=== PATIENT | male | born 1985 | race Caucasian/White ===

== ENCOUNTER 2018-04-05 08:21 | Outpatient (RCR) | payer OTHER, MEDICAID ==
[2018-02-22 08:32] LABS: BASOPHILS # (AUTO) 0.1 10^3/uL (0.0-0.1); BASOPHILS % (AUTO) 1 % (0-10); EOSINOPHILS # (AUTO) 0.1 10^3/uL (0.0-0.3); EOSINOPHILS % (AUTO) 1 % (0-10); HEMATOCRIT 44 % (40-54); HEMOGLOBIN 15.2 G/DL (13.3-17.7); LYMPHOCYTES # (AUTO) 4.4 X 10^3 (1.0-4.0); LYMPHOCYTES % (AUTO) 41 % (12-44); MEAN CORPUSCULAR HEMOGLOBIN 29 PG (25-34); MEAN CORPUSCULAR HGB CONC 35 G/DL (32-36); MEAN CORPUSCULAR VOLUME 82 FL (80-99); MEAN PLATELET VOLUME 10.3 FL (7.4-10.4); MONOCYTES # (AUTO) 0.7 X 10^3 (0.0-1.0); MONOCYTES % (AUTO) 7 % (0-12); NEUTROPHILS # (AUTO) 5.2 X 10^3 (1.8-7.8); NEUTROPHILS % (AUTO) 50 % (42-75); PLATELET COUNT 224 10^3/uL (130-400); RED BLOOD COUNT 5.31 10^6/uL (4.35-5.85); RED CELL DISTRIBUTION WIDTH 15.8 % (10.0-14.5); WHITE BLOOD COUNT 10.5 10^3/uL (4.3-11.0)
[2018-02-22 08:50] LABS: ALANINE AMINOTRANSFERASE 29 U/L (0-55); ALKALINE PHOSPHATASE 118 U/L (40-136); BILIRUBIN,TOTAL 0.6 MG/DL (0.1-1.0); BUN/CREATININE RATIO 13; CALCIUM 9.3 MG/DL (8.5-10.1); CARBON DIOXIDE 23 MMOL/L (21-32); CHLORIDE 110 MMOL/L (98-107); GFR ESTIMATED > 60; GLUCOSE 88 MG/DL (70-105); POTASSIUM 3.9 MMOL/L (3.6-5.0); SODIUM 140 MMOL/L (135-145); TOTAL PROTEIN 6.5 GM/DL (6.4-8.2)
[~2018-04-05] VITALS: Ht 175.3 cm; Wt 124.3 kg
[~2018-04-05 08:21] MED LIST: ACETAMINOPHEN 500 MG TAB (TYLENOL) CANCER CTR PO PRN; IVIG 10 GM (PRIVIGEN) CANCER C 100 ML IV SCH; IVIG 20 GM (PRIVIGEN) CANCER C 200 ML IV SCH; diphenhydrAMINE 25 MG TAB (BENADRYL) CANCER CENTER PO SCH
[2018-04-13] MEDS ORDERED: DOXY100T2 PO (21:38)
== END 2018-04-17 | disposition home or self-care (01) ==
LOC: ONC 08:21
PROVIDERS: ATTEND Internal Medicine Hematology & Oncology
DX: D83.9 Common variable immunodeficiency, unspecified (principal); C83.70 Burkitt lymphoma, unspecified site; K63.9 Disease of intestine, unspecified; J45.909 Unspecified asthma, uncomplicated; E66.9 Obesity, unspecified; R00.0 Tachycardia, unspecified
CPT/HCPCS: 36591; 80053; 82784; 85025; 96365; 96366; 99214

== ENCOUNTER 2018-04-13 19:10 | Emergency (ER) | payer MEDICARE, MEDICAID ==
[~2018-04-13] VITALS: Ht 175.3 cm; Wt 124.7 kg
--- OUTSIDE RECORDS SUMMARY | 2018-04-13 19:13 | XMS REPORT ---
Author Author BRYN LE Organization [facility] Address [address] [place] [address] Care Team Providers Care Vfx Artist Name Role Phone BRYN LE Unavailable PROBLEMS Type Condition ICD9-CM Code [id number] Code Onset Dates Condition Status SNOMED Code Problem Hypogonadism in male E29.1 Active 70160053 Problem Seasonal allergies J30.2 Active 543900166 ALLERGIES Substance Reaction Event Type Date Status Penicillin G Sodium Unknown Drug Allergy Jan, Active Morphine Sulfate Unknown Drug Allergy Jan, Active Codeine Phosphate Unknown Drug Allergy Jan, Active Amoxicillin Unknown Drug Allergy Jan, Active ENCOUNTERS Encounter Location Date Diagnosis [facility] [id number] [place] [address]18[address]139 Mar, [facility] [id number] [place] [address] 48914[address] 9938 Mar, Seasonal allergies J30.2 [facility] [id number] [place] [address] 67031- 8473 Mar, Screening for tuberculosis Z11.1 and Visit for TB skin test Z11.1 [facility] [address], [place] [address] Feb, [facility] [address] [place] [address] Feb, Hypogonadism in male E29.1 [facility] [id number] [place] [address] 97433- 6553 Feb, [facility] [id number] [place] [address] 77029- 9681 Jan, Seasonal allergies J30.2 and Hypogonadism in male E29.1 [facility] [address] [address], [place] [address] December, Pharyngitis, unspecified etiology J02.9 [facility] [address] [place] [address]6638- 7894 December, Pharyngitis due to other organism J02.8 and 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 [facility] [address], [place] [address] December, Seasonal allergies J30.2 [facility] [id number] [place] [address] 15559[address] 8059 Nov, [facility] [address] [place] [address] 17172- 8430 Nov, Encounter for immunization Z23 IMMUNIZATIONS No Known Immunizations SOCIAL HISTORY Never Assessed REASON FOR VISIT Laryngitis f/u---DBennettRN PLAN OF CARE VITAL SIGNS Height 70 in 2018-01-22 Weight 271 lbs 2018-01-22 Temperature 97.4 degrees Fahrenheit 2018-01-22 Heart Rate 60 bpm 2018-01-22 Respiratory Rate 20 2018-01-22 BMI 38.88 kg/m2 2018-01-22 Blood pressure systolic 104 mmHg 2018-01-22 Blood pressure diastolic 70 mmHg 2018-01-22 MEDICATIONS Medication Instructions Dosage Frequency Start Date End Date Duration Status Vitamin D 1000 UNIT Orally Once a day 1 tablet 24h Active Ventolin HFA 108 (90 Base) MCG/ACT Inhalation every 4 hrs 2 puffs as needed 4h Active Ergocalciferol 53325 UNIT Orally once weekly 1 capsule Active Depo-Testosterone 100 MG/ML Intramuscular once monthly 1 ml Jan, Active Cyanocobalamin 1000 MCG/ML 1 ml Active Symbicort 160-4.5 MCG/ACT Inhalation Twice a day 2 puffs 12h Active Baclofen 10 MG Orally Three times a day 1 tablet with food or milk 8h Active Cetirizine HCl 10 MG Orally Once a day 1 tablet 24h 30 day(s) Active Omeprazole 40 MG Orally twice a day 1 capsule 12h Active Atenolol 50 mg Orally Once a day 1 tablet 24h Active RESULTS No Results PROCEDURES Procedure Date Ordered Result Body Site COMPREHEN METABOLIC PANEL January 22, 2018 ASSAY OF TOTAL TESTOSTERONE January 22, 2018 COMPLETE CBC W/AUTO DIFF WBC January 22, 2018 VENIPUNCT, ROUTINE* January 22, 2018 ASSAY THYROID STIM HORMONE January 22, 2018 INSTRUCTIONS MEDICATIONS ADMINISTERED No Known Medications MEDICAL (GENERAL) HISTORY Type Description Date Medical History lymphoma Medical History tachycardia Medical History asthma Medical History PTSD Surgical History Gallbladder removal Surgical History Tonsils removed Surgical History sinus surgery
--- OUTSIDE RECORDS SUMMARY | 2018-04-13 19:13 | XMS REPORT ---
Author Author BRYN LE Organization [facility] Address [address] [place] [address] Care Team Providers Care Buggy Runner Name Role Phone BRYN LE Unavailable PROBLEMS Type Condition ICD9-CM Code OTS74-TI Code Onset Dates Condition Status SNOMED Code Problem Hypogonadism in male E29.1 Active 16153722 Problem Seasonal allergies J30.2 Active 984312270 ALLERGIES No Information ENCOUNTERS Encounter Location Date Diagnosis [facility] [id number] [place] [address] 0[address]00[address] Mar, [facility] [id number] [place] [address] 42832- 2051 Mar, [facility] [id number] [place] [address] 86449- 7580 Mar, Seasonal allergies J30.2 [facility] [id number] [place] [address] 87035- 4320 Mar, Visit for TB skin test Z11.1 and Screening for tuberculosis Z11.1 [facility] [id number] [place] [address] 85877- 6331 Feb, [facility] [id number] [place] [address] 82512 [address]25[address] Feb, Hypogonadism in male E29.1 [facility] [id number] [place] [address] 21499- 4385 Feb, [facility] [id number] [place] [address] 13196- 4545 Jan, Seasonal allergies J30.2 and Hypogonadism in male E29.1 [facility] [id number] [place] [address] 66543 -1480 December, Pharyngitis, unspecified etiology J02.9 [facility] [id number] [address] December, Pharyngitis due to other organism J02.8 and 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 [facility] [address] [address] December, Seasonal allergies J30.2 [facility] [address] [address] Nov, [facility] [address] [address] Nov, Encounter for immunization Z23 IMMUNIZATIONS Vaccine Route Administration Date Status TESTOSTERONE (PT'S OWN) IM Intramuscular February 17, 2018 Administered SOCIAL HISTORY Never Assessed REASON FOR VISIT [facility] CARE VITAL SIGNS MEDICATIONS Unknown Medications RESULTS No Results PROCEDURES Procedure Date Ordered Result Body Site TESTOSTERONE (PT'S OWN) February 17, 2018 THER/PROPH/DIAG INJ, SC/IM February 17, 2018 INSTRUCTIONS MEDICATIONS ADMINISTERED No Known Medications MEDICAL (GENERAL) HISTORY Type Description Date Medical History lymphoma Medical History tachycardia Medical History asthma Medical History PTSD Surgical History Gallbladder removal Surgical History Tonsils removed Surgical History sinus surgery
--- OUTSIDE RECORDS SUMMARY | 2018-04-13 19:14 | XMS REPORT ---
Author Author TUYET GILL [facility] Address [address] [place] [address] Care Team Providers Care Manpower Development Advisor Name Role Phone GILLTUYET Unavailable PROBLEMS Type Condition ICD9-CM Code UQK92-GG Code Onset Dates Condition Status SNOMED Code Problem Hypogonadism in male E29.1 Active 26889530 Problem Seasonal allergies J30.2 Active 521452631 ALLERGIES No Information ENCOUNTERS Encounter Location Date Diagnosis [facility] [address] [address] Mar, [facility] [address] [address] Feb, [facility] [address] [address] Feb, Hypogonadism in male E29.1 [facility] [address] [address] Feb, [facility] [address] 8[address]11[address] Jan, Seasonal allergies J30.2 and Hypogonadism in male E29.1 [facility] [id number] [place] [address] December, Pharyngitis, unspecified etiology J02.9 [facility] [address] [address] December, Pharyngitis due to other organism J02.8 and 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 [facility] [id number] [place] [address]10 -[address] December, Seasonal allergies J30.2 [facility] [address] [facility] [id number] [place] [address] Nov, [facility] [address] [facility] [id number] [address] Nov, Encounter for immunization Z23 IMMUNIZATIONS Vaccine Route Administration Date Status TDAP (BOOSTRIX) IM Intramuscular November 17, 2017 Administered MENINGOCOCCAL (MENVEO) IM Intramuscular November 17, 2017 Administered SOCIAL HISTORY Never Assessed REASON FOR VISIT Immunization(s)- AZEEM [employer] PLAN OF CARE VITAL SIGNS MEDICATIONS Unknown Medications RESULTS No Results PROCEDURES Procedure Date Ordered Result Body Site MENINGOCOCCAL (MENVEO) November 17, 2017 TDAP (BOOSTRIX) November 17, 2017 IMMUNIZATION ADMIN, EACH ADD (please include units) November 17, 2017 SINGLE IMMUNIZATION ADMIN November 17, 2017 INSTRUCTIONS MEDICATIONS ADMINISTERED No Known Medications MEDICAL (GENERAL) HISTORY Type Description Date Medical History lymphoma Medical History tachycardia Medical History asthma Medical History PTSD Surgical History Gallbladder removal Surgical History Tonsils removed Surgical History sinus surgery
--- OUTSIDE RECORDS SUMMARY | 2018-04-13 19:14 | XMS REPORT ---
Author Author CRISTINA BUSTILLOS [facility] Address [address] [place] [address] Care Team Providers Care Talent Acquisition Project Manager Name Role Phone CRISTINA BUSTILLOS Unavailable PROBLEMS Type Condition ICD9-CM Code OQU42-QX Code Onset Dates Condition Status SNOMED Code Problem Hypogonadism in male E29.1 Active 48684930 Problem Seasonal allergies J30.2 Active 639224736 ALLERGIES Substance Reaction Event Type Date Status Penicillin G Sodium Unknown Drug Allergy December, Active Morphine Sulfate Unknown Drug Allergy December, Active Codeine Phosphate Unknown Drug Allergy December, Active ENCOUNTERS Encounter Location Date Diagnosis [place] [id number] [place] [address] 28922- 9787 Mar, [facility] [id number] [place] [address] 26240- 6564 Feb, [facility] [id number] [place] [address] -0767 Feb, Hypogonadism in male E29.1 [facility] [id number] [place] [address] 85133- 4873 Feb, [facility] [id number] [place] [address] 94158- 7136 Jan, Seasonal allergies J30.2 and Hypogonadism in male E29.1 [facility] [address] [address] December, Pharyngitis, unspecified etiology J02.9 [facility] [id number] [place] [address] 67628- 5466 December, Pharyngitis due to other organism J02.8 and 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 [facility] [address] [facility] [id number] [place] [address] December, Seasonal allergies J30.2 [facility] [address] [facility] [id number] [place] [address] Nov, [facility] [address] [facility] [id number], [place] [address] Nov, Encounter for immunization Z23 IMMUNIZATIONS No Known Immunizations SOCIAL HISTORY Never Assessed REASON FOR VISIT Congestion/fever and chills JStrasserRN PLAN OF CARE Activity Details Follow Up prn Reason: VITAL SIGNS Height 70 in 2017-12-09 Weight 273.2 lbs 2017-12-09 Temperature 98.4 degrees Fahrenheit 2017-12-09 Heart Rate 80 bpm 2017-12-09 Respiratory Rate 22 2017-12-09 BMI 39.20 kg/m2 2017-12-09 Blood pressure systolic 124 mmHg 2017-12-09 Blood pressure diastolic 86 mmHg 2017-12-09 MEDICATIONS Medication Instructions Dosage Frequency Start Date End Date Duration Status Cetirizine HCl 10 MG Orally Once a day 1 tablet 24h 30 day(s) Active Omeprazole 40 MG Orally Once a day 1 capsule 24h Active Testosterone 4 MG/24HR Transdermal Once a day 1 patch to skin at bedtime 24h Active Atenolol 50 MG Orally Once a day 1 tablet 24h Active Vitamin D 1000 UNIT Orally Once a day 1 tablet 24h Active Symbicort 80-4.5 MCG/ACT Inhalation Twice a day 2 puffs 12h Active Vitamin B12 3000 MCG/ML Active ProAir RespiClick 108 (90 Base) MCG/ACT Inhalation every 6 hrs 2 puffs as needed 6h Active RESULTS No Results PROCEDURES No Known procedures INSTRUCTIONS MEDICATIONS ADMINISTERED No Known Medications MEDICAL (GENERAL) HISTORY Type Description Date Medical History lymphoma Medical History tachycardia Medical History asthma Medical History PTSD Surgical History Gallbladder removal Surgical History Tonsils removed Surgical History sinus surgery
--- OUTSIDE RECORDS SUMMARY | 2018-04-13 19:14 | XMS REPORT ---
Author Author CRISTINA BUSTILLOS [facility] Address [address] [place] [address] Care Team Providers Care Rug Shampooer Name Role Phone CRISTINA BUSTILLOS Unavailable PROBLEMS Type Condition ICD9-CM Code DES73-OG Code Onset Dates Condition Status SNOMED Code Problem Hypogonadism in male E29.1 Active 80960184 Problem Seasonal allergies J30.2 Active 248331777 ALLERGIES Substance Reaction Event Type Date Status Penicillin G Sodium Unknown Drug Allergy December, Active Morphine Sulfate Unknown Drug Allergy December, Active Codeine Phosphate Unknown Drug Allergy December, Active Amoxicillin Unknown Drug Allergy December, Active ENCOUNTERS Encounter Location Date Diagnosis [facility] [id number] [place] [address]252- [address] Mar, [facility] [id number] [place] [address] 50561- 9390 Mar, [facility] [id number] [place] [address] 07975- 8515 Mar, Seasonal allergies J30.2 [facility] [address] [place] [address] 94859- 5795 Mar, Visit for TB skin test Z11.1 and Screening for tuberculosis Z11.1 [facility] [address] [place] [address] 14341- 1403 Feb, [facility] [id number] [place] [address] 37762 -8796 Feb, Hypogonadism in male E29.1 [facility] [id number] [place] [address] 71921- 3660 Feb, [facility] [id number] [place] [address] 60141- 0223 Jan, Seasonal allergies J30.2 and Hypogonadism in male E29.1 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 [id number] [place] [address]5917 -[address]94 December, Seasonal allergies J30.2 [facility] [id number] [place] [address] 65896- 1515 Nov, [facility] [id number] [place] [address] 77520- 4263 Nov, Encounter for immunization Z23 IMMUNIZATIONS No Known Immunizations SOCIAL HISTORY Never Assessed REASON FOR VISIT cough/sore throat Pt c/o cough, congestion and sore throat for a couple of weeks, JEREMIAH Kraus PLAN OF CARE Activity Details Follow Up prn Reason: VITAL SIGNS Height 70 in 2018-01-02 Weight 271.2 lbs 2018-01-02 Temperature 98.2 degrees Fahrenheit 2018-01-02 Heart Rate 76 bpm 2018-01-02 Respiratory Rate 20 2018-01-02 BMI 38.91 kg/m2 2018-01-02 Blood pressure systolic 124 mmHg 2018-01-02 Blood pressure diastolic 76 mmHg 2018-01-02 MEDICATIONS Medication Instructions Dosage Frequency Start Date End Date Duration Status Vitamin D 1000 UNIT Orally Once a day 1 tablet 24h Active Cyanocobalamin 1000 MCG/ML 1 ml Active Ventolin HFA 108 (90 Base) MCG/ACT Inhalation every 4 hrs 2 puffs as needed 4h Active Atenolol 50 mg Orally Once a day 1 tablet 24h Active Cetirizine HCl 10 MG Orally Once a day 1 tablet 24h 30 day(s) Active Omeprazole 40 MG Orally twice a day 1 capsule 12h Active Testosterone 4 MG/24HR Transdermal Once a day 1 patch to skin at bedtime 24h Active Clindamycin HCl 300 MG Orally every 6 hrs 1 capsule 6h December,Jan 10 days Active Symbicort 160-4.5 MCG/ACT Inhalation Twice a day 2 puffs 12h Active Ergocalciferol 52778 UNIT 1 capsule Active Baclofen 10 MG Orally Three times a day 1 tablet with food or milk 8h Active RESULTS No Results PROCEDURES No Known procedures INSTRUCTIONS MEDICATIONS ADMINISTERED No Known Medications MEDICAL (GENERAL) HISTORY Type Description Date Medical History lymphoma Medical History tachycardia Medical History asthma Medical History PTSD Surgical History Gallbladder removal Surgical History Tonsils removed Surgical History sinus surgery
--- OUTSIDE RECORDS SUMMARY | 2018-04-13 19:14 | XMS REPORT ---
Author Author BRYN LE Organization [facility] Address [address] [place] [address] Care Team Providers Care Didactic Program In Dietetics Director Name Role Phone BRYN LE Unavailable PROBLEMS Type Condition ICD9-CM Code GJD43-AP Code Onset Dates Condition Status SNOMED Code Problem Hypogonadism in male E29.1 Active 82472954 Problem Seasonal allergies J30.2 Active 405127397 ALLERGIES No Information ENCOUNTERS Encounter Location Date Diagnosis [facility] [address] [address] Mar, [facility] [address] [address] Feb, [facility] [address] [address] Feb, Hypogonadism in male E29.1 [facility] [address] [address] Feb, [facility] [id number] [place] [address] Jan, Seasonal allergies J30.2 and Hypogonadism in male E29.1 [facility] [id number] [place] [address] December, Pharyngitis, unspecified etiology J02.9 [facility] [address] [address] December, Pharyngitis due to other organism J02.8 and 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 [id number] [place] [address] Nov, [facility] [address] [facility] [id number] [place] [address] Nov, Encounter for immunization Z23 IMMUNIZATIONS No Known Immunizations SOCIAL HISTORY Never Assessed REASON FOR VISIT Update Demographics - Personal Info PLAN OF CARE VITAL SIGNS MEDICATIONS Unknown Medications RESULTS No Results PROCEDURES No Known procedures INSTRUCTIONS MEDICATIONS ADMINISTERED No Known Medications MEDICAL (GENERAL) HISTORY Type Description Date Medical History lymphoma Medical History tachycardia Medical History asthma Medical History PTSD Surgical History Gallbladder removal Surgical History Tonsils removed Surgical History sinus surgery
--- OUTSIDE RECORDS SUMMARY | 2018-04-13 19:14 | XMS REPORT ---
Author Author BRYN LE Organization [facility] Address [address] [place] [address] Care Team Providers Care Embedded Linux Developer Name Role Phone BRYN LE Unavailable PROBLEMS Type Condition ICD9-CM Code [id number] Code Onset Dates Condition Status SNOMED Code Problem Hypogonadism in male E29.1 Active 34726439 Problem Seasonal allergies J30.2 Active 902610551 ALLERGIES Substance Reaction Event Type Date Status Penicillin G Sodium Unknown Drug Allergy December, Active Morphine Sulfate Unknown Drug Allergy December, Active Codeine Phosphate Unknown Drug Allergy December, Active ENCOUNTERS Encounter Location Date Diagnosis [facility] [id number] [place] [address]81[address]120 Mar, [facility] [id number] [place] [address]3975[address] 8670 Mar, Seasonal allergies J30.2 [facility] [address] [address] Mar, Visit for TB skin test Z11.1 and Screening for tuberculosis Z11.1 [facility] [id number] [place] [address] 66[address] [phone] Feb, [facility]ALK [facility] [id number] [place] [address] Feb, Hypogonadism in male E29.1 [facility] [id number] [place] [address] Feb, [facility] [address] [address] Jan, Seasonal allergies J30.2 and Hypogonadism in male E29.1 [facility] [id number] [place] [address] December, Pharyngitis, unspecified etiology J02.9 [facility] [id number], [place] [address] December, Pharyngitis due to other organism J02.8 and 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 CBrumbackRn PLAN OF CARE VITAL SIGNS Height 70 in 2017-12-20 Weight 267.9 lbs 2017-12-20 Temperature 98.2 degrees Fahrenheit 2017-12-20 Heart Rate 80 bpm 2017-12-20 Respiratory Rate 22 2017-12-20 BMI 38.44 kg/m2 2017-12-20 Blood pressure systolic 125 mmHg 2017-12-20 Blood pressure diastolic 74 mmHg 2017-12-20 MEDICATIONS Medication Instructions Dosage Frequency Start Date End Date Duration Status Ventolin HFA 108 (90 Base) MCG/ACT Inhalation every 4 hrs 2 puffs as needed 4h Active Atenolol 50 mg Orally Once a day 1 tablet 24h Active Omeprazole 40 MG Orally twice a day 1 capsule 12h Active Testosterone 4 MG/24HR Transdermal Once a day 1 patch to skin at bedtime 24h Active ProAir RespiClick 108 (90 Base) MCG/ACT Inhalation every 6 hrs 2 puffs as needed 6h Not-Taking Baclofen 10 MG Orally Three times a day 1 tablet with food or milk 8h Active Cyanocobalamin 1000 MCG/ML 1 ml Active Vitamin D 1000 UNIT Orally Once a day 1 tablet 24h Active Symbicort 160-4.5 MCG/ACT Inhalation Twice a day 2 puffs 12h Active Vitamin B12 3000 MCG/ML Not-Taking Cetirizine HCl 10 MG Orally Once a day 1 tablet 24h 30 day(s) Active Ergocalciferol 94316 UNIT 1 capsule Active Zithromax Z-Chas 250 MG Orally Once a day 2 tablets on the first day, then 1 tablet daily for 4 days 24h December, December, 5 day(s) Active RESULTS No Results PROCEDURES No Known procedures INSTRUCTIONS MEDICATIONS ADMINISTERED No Known Medications MEDICAL (GENERAL) HISTORY Type Description Date Medical History lymphoma Medical History tachycardia Medical History asthma Medical History PTSD Surgical History Gallbladder removal Surgical History Tonsils removed Surgical History sinus surgery
[2018-04-13] MEDS ORDERED: NS IV 1000 ML 1,000 ML IV ONE (19:42)
[2018-04-13 20:02] LABS: BILIRUBIN,URINE NEGATIVE (NEGATIVE); CLARITY,URINE CLEAR; COLOR,URINE YELLOW; GLUCOSE, URINE (UA) NEGATIVE (NEGATIVE); KETONES,URINE NEGATIVE (NEGATIVE); LEUKOCYTE ESTERASE ,URINE NEGATIVE (NEGATIVE); NITRITE,URINE NEGATIVE (NEGATIVE); PH,URINE 6 (5-9); PROTEIN,URINE NEGATIVE (NEGATIVE); UROBILINOGEN,URINE NORMAL (NORMAL)
[2018-04-13 20:10] LABS: SQUAMOUS EPITHELIAL CELL,UR RARE /HPF
[2018-04-13 20:16] LABS: BASOPHILS # (AUTO) 0.1 10^3/uL (0.0-0.1); BASOPHILS % (AUTO) 0 % (0-10); EOSINOPHILS # (AUTO) 0.2 10^3/uL (0.0-0.3); EOSINOPHILS % (AUTO) 2 % (0-10); HEMATOCRIT 44 % (40-54); HEMOGLOBIN 15.4 G/DL (13.3-17.7); LYMPHOCYTES # (AUTO) 4.5 X 10^3 (1.0-4.0); LYMPHOCYTES % (AUTO) 35 % (12-44); MEAN CORPUSCULAR HEMOGLOBIN 28 PG (25-34); MEAN CORPUSCULAR HGB CONC 35 G/DL (32-36); MEAN CORPUSCULAR VOLUME 82 FL (80-99); MEAN PLATELET VOLUME 9.8 FL (7.4-10.4); MONOCYTES # (AUTO) 0.8 X 10^3 (0.0-1.0); MONOCYTES % (AUTO) 6 % (0-12); NEUTROPHILS # (AUTO) 7.4 X 10^3 (1.8-7.8); NEUTROPHILS % (AUTO) 57 % (42-75); PLATELET COUNT 260 10^3/uL (130-400); RED BLOOD COUNT 5.42 10^6/uL (4.35-5.85); RED CELL DISTRIBUTION WIDTH 14.7 % (10.0-14.5)
--- NOTE | 2018-04-13 20:23 | ED General ---
General Chief Complaint: General Problems/Pain Stated Complaint: FEVER/CHILLS Source of Information: Patient Exam Limitations: No Limitations History of Present Illness Date Seen by Provider: Apr 13, 2018 Time Seen by Provider: 19:42 Initial Comments Here with report of concerns of having an infection. 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 He is on every six-week IVIG treatment. Last dose of approximately 1 week ago[address] with Dr. Seo. Also follows with the [facility]. Reports cough and upper respiratory symptoms for the last 1 or 2 days that has worsened today. Feels weak today. Also feels somewhat short of breath. Concerned about infection given his immune status. Timing/Duration: 1-2 Days Severity: Moderate Associated Systoms: Cough; No Fever/Chills; Malaise; No Nausea/Vomiting; Shortness of Air, Weakness Allergies and Home Medications Allergies Coded Allergies: Penicillins (Verified Allergy, Unknown, 02/16/18) amoxicillin (Verified Allergy, Unknown, 02/16/18) hydrocodone (Verified Allergy, Unknown, 02/16/18) morphine (Verified Allergy, Unknown, 02/16/18) oxycodone (Verified Allergy, Unknown, 02/16/18) Patient Home Medication List Home Medication List Reviewed: Yes Review of Systems Review of Systems Constitutional: see HPI; No chills, No fever EENTM: see HPI, nose congestion, throat pain; No hoarseness Respiratory: cough, short of breath Cardiovascular: No chest pain, No edema Gastrointestinal: No abdominal pain, No nausea, No vomiting Genitourinary: no symptoms reported All Other Systems Reviewed Negative Unless Noted: Yes Past Bvxjsip-Qbsmjb-Oieqtf Hx Past Med/Social Hx: Reviewed Nursing Past Med/Soc Hx Patient Social History Alcohol Use: Denies Use Recreational Drug Use: No Smoking Status: Never a Smoker Recent Foreign Travel: No Contact w/Someone Who Travel: No Past Medical History Surgeries: Yes Abdominal, Orthopedic, Tonsillectomy Respiratory: No Cardiac: No Neurological: No Genitourinary: No Gastrointestinal: No Musculoskeletal: No Endocrine: No HEENT: No Cancer: Yes Lymphoma Did You Recieve Any Treatments: Yes What Type of Treatment Did You: Chemotherapy Psychosocial: No Family Medical History Reviewed Nursing Family Hx Physical Exam-Suspected Sepsis Physical Exam Vital Signs Capillary Refill : Height, Weight, BMI Height: '" Weight: lbs. oz. kg; BMI Method: General Appearance: No Apparent Distress, WD/WN HEENT: PERRL/EOMI, Pharynx Normal Neck: Non Tender, Supple Respiratory: Lungs Clear, Normal Breath Sounds Cardiovascular: Regular Rate, Rhythm, No Murmur Gastrointestinal: Normal Bowel Sounds, Non Tender, Soft Back: Normal Inspection, No CVA Tenderness, No Vertebral Tenderness Extremity: Normal Range of Motion, Non Tender Neurologic/Psychiatric: Alert, Oriented x3, No Motor/Sensory Deficits Skin: normal color, warm/dry Focused Exam Lactate Level 04/13/18 20:05: Lactic Acid Level 1.64 Lactic Acid Level Laboratory Tests Test 04/13/18 20:05 Lactic Acid Level 1.64 MMOL/L (0.50-2.00) Progress/Results/Core Measures Suspected Sepsis SIRS Temperature: Pulse: Respiratory Rate: Laboratory Tests 04/13/18 20:05: White Blood Count 13.0H Blood Pressure / Mean: 04/13/18 20:05: Lactic Acid Level 1.64 Laboratory Tests 04/13/18 20:05: Creatinine 0.97, INR Comment 0.9, Platelet Count 260, Total Bilirubin 0.3 Results/Orders Lab Results Laboratory Tests Test 04/13/18 19:55 04/13/18 20:05 Range/Units Urine Color YELLOW Urine Clarity CLEAR Urine pH 6 5-9 Urine Specific [place] 1.010 L 1.016-1.022 Urine Protein NEGATIVE NEGATIVE Urine Glucose (UA) NEGATIVE NEGATIVE Urine Ketones NEGATIVE NEGATIVE Urine Nitrite NEGATIVE NEGATIVE Urine Bilirubin NEGATIVE NEGATIVE Urine Urobilinogen NORMAL NORMAL MG/DL Urine Leukocyte Esterase NEGATIVE NEGATIVE Urine RBC (Auto) NEGATIVE NEGATIVE Urine RBC NONE /HPF Urine WBC NONE /HPF Urine Squamous Epithelial Cells RARE /HPF Urine Crystals NONE /LPF Urine Bacteria NONE /HPF Urine Casts NONE /LPF Urine Mucus NEGATIVE /LPF Urine Culture Indicated NO White Blood Count 13.0 H 4.3-11.0 10^3/uL Red Blood Count 5.42 4.35-5.85 10^6/uL Hemoglobin 15.4 13.3-17.7 G/DL Hematocrit 44 40-54 % Mean Corpuscular Volume 82 80-99 FL Mean Corpuscular Hemoglobin 28 25-34 PG Mean Corpuscular Hemoglobin Concent 35 32-36 G/DL Red Cell Distribution Width 14.7 H 10.0-14.5 % Platelet Count 260 130-400 10^3/uL Mean Platelet Volume 9.8 7.4-10.4 FL Neutrophils (%) (Auto) 57 42-75 % Lymphocytes (%) (Auto) 35 12-44 % Monocytes (%) (Auto) 6 0-12 % Eosinophils (%) (Auto) 2 0-10 % Basophils (%) (Auto) 0 0-10 % Neutrophils # (Auto) 7.4 1.8-7.8 X 10^3 Lymphocytes # (Auto) 4.5 H 1.0-4.0 X 10^3 Monocytes # (Auto) 0.8 0.0-1.0 X 10^3 Eosinophils # (Auto) 0.2 0.0-0.3 10^3/uL Basophils # (Auto) 0.1 0.0-0.1 10^3/uL Prothrombin Time 11.9 L 12.2-14.7 SEC INR Comment 0.9 0.8-1.4 Activated Partial Thromboplast Time 25 24-35 SEC Sodium Level 138 135-145 MMOL/L Potassium Level 3.8 3.6-5.0 MMOL/L Chloride Level 106 98-107 MMOL/L Carbon Dioxide Level 19 L 21-32 MMOL/L Anion Gap 13 5-14 MMOL/L Blood Urea Nitrogen 14 7-18 MG/DL Creatinine 0.97 0.60-1.30 MG/DL Estimat Glomerular Filtration Rate > 60 BUN/Creatinine Ratio 14 Glucose Level 102 70-105 MG/DL Lactic Acid Level 1.64 0.50-2.00 MMOL/L Calcium Level 9.8 8.5-10.1 MG/DL Corrected Calcium 9.8 8.5-10.1 MG/DL Total Bilirubin 0.3 0.1-1.0 MG/DL Aspartate Amino Transf (AST/SGOT) 21 5-34 U/L Alanine Aminotransferase (ALT/SGPT) 40 0-55 U/L Alkaline Phosphatase 124 40-136 U/L Total Protein 6.8 6.4-8.2 GM/DL Albumin 4.0 3.2-4.5 GM/DL My Orders Orders - ISELA BRUCE MD Cbc With Automated Diff (04/13/18 19:42) Comprehensive Metabolic Panel (04/13/18 19:42) Blood Culture (04/13/18 19:42) Sputum Culture (04/13/18 19:42) Urinalysis (04/13/18 19:42) Urine Culture (04/13/18 19:42) Protime With Inr (04/13/18 19:42) Partial Thromboplastin Time (04/13/18 19:42) Chest 1 View, Ap/Pa Only (04/13/18 19:42) Saline Lock/Iv-Start (04/13/18 19:42) Vital Signs Adult Sepsis Patie Q15M (04/13/18 19:42) O2 (04/13/18 19:42) Remove Rings In Anticipation O (04/13/18 19:42) Lactic Acid Analyzer (04/13/18 19:42) Saline Lock/Iv-Start (04/13/18 19:42) Ns Iv 1000 Ml (Sodium Chloride 0.9%) (04/13/18 19:42) Medications Given in ED Current Medications Medications Dose Ordered Sig/Janelle Route Start Time Stop Time Status Last Admin Dose Admin Sodium Chloride 1,000 ml @ 0 mls/hr Q0M ONCE IV 04/13/18 19:42 04/13/18 19:44 DC 04/13/18 20:47 0 MLS/HR Vital Signs/I&O Capillary Refill : Progress Note : Progress Note Seen and evaluated. IV, labs, UA, chest x-ray, blood cultures and lactic acid ordered. Normal saline 1 L bolus. Monitor patient. 2135: No acute findings. Given patient's underlying status we will go ahead and treat for possible atypical pneumonia given his cough. Doxycycline 100 mg by mouth given. All of this was discussed with patient and family and they are in agreement. Discharged home with return precautions. Patient verbalize understanding instructions and agreement with plan Diagnostic Imaging Diagonstic Imaging: Xray Plain Films/CT/US/NM/MRI: chest Comments NAME: LIDA CALDERON [facility] REC#: [id number] PT STATUS: REG ER : 1985 PHYSICIAN: ISELA BRUCE MD ADMIT DATE: 04/13/18/ER Signed Date of Exam: 04/13/18 CHEST 1 VIEW, AP/PA ONLY INDICATION: A 33-year-old male with fever, chills, cough, and congestion. COMPARISONS: None. FINDINGS: Single view of the chest shows borderline cardiomegaly. There are no consolidations, effusion or pneumothorax. There is a left subclavian Mediport with the tip projected over the SVC. Soft tissues and bony thorax are normal. IMPRESSION: 1. Borderline cardiomegaly. 2. No acute consolidations. 3. There is a left subclavian Mediport with the tip of the catheter projected over the mid SVC. Dictated by: Dictated on workstation # [id number] Dict: 04/13/182036 Trans: 04/13/182054 Interpreted by: ELSA BYRNE MD Electronically signed by: ELSA BYRNE MD 04/13/182054 Departure Impression Primary Impression: Bronchitis Disposition: 01 HOME, SELF-CARE Condition: Improved Departure-Patient Inst. Decision time for Depature: 21:37 Referrals: [facility] [place] [facility] (PCP/Family) Primary Care Physician Patient Instructions: Acute Bronchitis, Adult (DC) Add. Discharge Instructions: All discharge instructions reviewed with patient and/or family. Voiced understanding. Take medications as directed. Follow-up with your doctor on Monday for recheck and further evaluation. Return for worse pain, fever, vomiting, weakness, breathing problems or other concerns as needed. Scripts Doxycycline Hyclate (Doxycycline Hyclate) 100 Mg Tablet 100 MG PO BID, #20 TAB 0 Refills Prov: ISELA BRUCE MD 04/13/18 ISELA BRUCE MD Apr 13, 2018 20:23
[2018-04-13 20:27] LABS: INR 0.9 (0.8-1.4); PROTHROMBIN TIME PATIENT 11.9 SEC (12.2-14.7)
[2018-04-13 20:30] VITALS: BP 136/88
--- NOTE | 2018-04-13 20:42 | Diagnostic Imaging Report ---
INDICATION: A 33-year-old male with fever, chills, cough, and congestion. COMPARISONS: None. FINDINGS: Single view of the chest shows borderline cardiomegaly. There are no consolidations, effusion or pneumothorax. There is a left subclavian Mediport with the tip projected over the SVC. Soft tissues and bony thorax are normal. IMPRESSION: 1. Borderline cardiomegaly. 2. No acute consolidations. 3. There is a left subclavian Mediport with the tip of the catheter projected over the mid SVC. Dictated by: Dictated on workstation # [id number]
[2018-04-13 20:50] LABS: ALANINE AMINOTRANSFERASE 40 U/L (0-55); ALKALINE PHOSPHATASE 124 U/L (40-136); BILIRUBIN,TOTAL 0.3 MG/DL (0.1-1.0); BUN/CREATININE RATIO 14; CALCIUM 9.8 MG/DL (8.5-10.1); CARBON DIOXIDE 19 MMOL/L (21-32); CHLORIDE 106 MMOL/L (98-107); CREATININE SERUM 0.97 MG/DL (0.60-1.30); GFR ESTIMATED > 60; GLUCOSE 102 MG/DL (70-105); POTASSIUM 3.8 MMOL/L (3.6-5.0); SODIUM 138 MMOL/L (135-145); TOTAL PROTEIN 6.8 GM/DL (6.4-8.2)
[2018-04-13] MEDS ORDERED: DOXYCYCLINE 100 MG (VIBRAMYCIN) TABLET PO STA (21:35)
[2018-04-13] MEDS ORDERED: DOXY100T2 PO (21:38)
[2018-04-13 21:45] VITALS: BP 116/104
== END 2018-04-13 21:50 | disposition home or self-care (01) ==
LOC: EDUNIT# 19:10 → ER 19:10
DX: J40 Bronchitis, not specified as acute or chronic (principal); D89.9 Disorder involving the immune mechanism, unspecified; Z85.72 Personal history of non-Hodgkin lymphomas; Z90.89 Acquired absence of other organs; Z92.21 Personal history of antineoplastic chemotherapy; Z88.0 Allergy status to penicillin; Z88.5 Allergy status to narcotic agent; Z88.8 Allergy status to other drugs, medicaments and biological substances
CPT/HCPCS: 36415; 71045; 80053; 81000; 83605; 85025; 85610; 85730; 87040; 87088; 96360

== ENCOUNTER → 2018-04-16 | Outpatient (CLI) | payer MEDICARE, MEDICAID ==
[~2018-04-16] MED LIST changes: -ACETAMINOPHEN 500 MG TAB (TYLENOL) CANCER CTR PO PRN; +DOXY100T2 PO; -IVIG 10 GM (PRIVIGEN) CANCER C 100 ML IV SCH; -IVIG 20 GM (PRIVIGEN) CANCER C 200 ML IV SCH; -diphenhydrAMINE 25 MG TAB (BENADRYL) CANCER CENTER PO SCH
== END ==
LOC: LAB 15:10
PROVIDERS: ATTEND Nurse Practitioner Family
DX: J20.9 Acute bronchitis, unspecified (principal)
CPT/HCPCS: 36415; 83880

== ENCOUNTER 2018-05-11 06:39 | Outpatient (CLI) | payer MEDICARE, MEDICAID ==
[~2018-05-11] VITALS: Ht 175.3 cm; Wt 124.7 kg
[2018-05-11] MEDS ORDERED: OMEP40CA36 PO (12:18)
[2018-05-11] MEDS ORDERED: CETI10TA17 PO (12:18)
[2018-05-11] MEDS ORDERED: BUDE10.2 IH (12:18)
[2018-05-11] MEDS ORDERED: ATEN50TA PO (12:18)
== END 2018-05-11 12:22 | disposition home or self-care (01) ==
LOC: PREOP 06:39
PROVIDERS: ATTEND Surgery
DX: Z01.818 Encounter for other preprocedural examination (principal)

== ENCOUNTER 2018-05-15 09:32 | Day surgery (SDC) | payer MEDICARE, MEDICAID ==
[~2018-05-15] VITALS: Ht 175.3 cm; Wt 124.7 kg
[~2018-05-15 09:32] MED LIST changes: +ATEN50TA PO; +BUDE10.2 IH; +CETI10TA17 PO; +OMEP40CA36 PO
[2018-05-15 09:35] VITALS: BP 111/73
--- OUTSIDE RECORDS SUMMARY | 2018-05-15 09:35 | XMS REPORT ---
Author Author BRYN LE Organization [facility] Address [address] [place] [address] Care Team Providers Care Batch Mixing Truck Driver Name Role Phone BRYN LE Unavailable PROBLEMS Type Condition ICD9-CM Code [id number] Code Onset Dates Condition Status SNOMED Code Problem Hypogonadism in male E29.1 Active 67336053 Problem Seasonal allergies J30.2 Active 507423535 ALLERGIES No Information ENCOUNTERS Encounter Location Date Diagnosis [facility] [id number] [place] [address] Mar, [facility] [id number] [place] [address] 59228[address] Mar, [facility] [id number] [place] [address] 64749- [address] Mar, Seasonal allergies J30.2 [facility] [id number] [place] [address]37- 2989 Mar, Visit for TB skin test Z11.1 and Screening for tuberculosis Z11.1 [facility] [id number] [place] [address]48- [address] Feb, [facility] [id number] [place] [address] -[address] Feb, Hypogonadism in male E29.1 [facility] [id number] [place] [address]29- [address] Feb, [facility] [id number] [place] [address] 49979- [address] Jan, Seasonal allergies J30.2 and Hypogonadism in male E29.1 [facility] [id number] [place] [address] December, Pharyngitis, unspecified etiology J02.9 [facility] [address], [place] [address] December, Pharyngitis due to other organism J02.8 and 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 [facility] [address], [place] [address] December, Seasonal allergies J30.2 [facility] [address], [place] [address] Nov, [facility] [address] [place] [address]306[address] Nov, Encounter for immunization Z23 IMMUNIZATIONS No Known Immunizations SOCIAL HISTORY Never Assessed REASON FOR VISIT eye exam PLAN OF CARE VITAL SIGNS MEDICATIONS Unknown Medications RESULTS No Results PROCEDURES No Known procedures INSTRUCTIONS MEDICATIONS ADMINISTERED No Known Medications MEDICAL (GENERAL) HISTORY Type Description Date Medical History lymphoma Medical History tachycardia Medical History asthma Medical History PTSD Surgical History Gallbladder removal Surgical History Tonsils removed Surgical History sinus surgery
--- OUTSIDE RECORDS SUMMARY | 2018-05-15 09:35 | XMS REPORT ---
Author Author BRYN LE Organization [facility] Address [address] [place] [address] Care Team Providers Care Airplane Charter Clerk Name Role Phone BRYN LE Unavailable PROBLEMS Type Condition ICD9-CM Code KAH96-NN Code Onset Dates Condition Status SNOMED Code Problem Hypogonadism in male E29.1 Active 27590522 Problem Seasonal allergies J30.2 Active 928321778 ALLERGIES No Information ENCOUNTERS Encounter Location Date Diagnosis [facility] [id number] [place] [address]58[address] Mar, [facility] [id number] [place] [address] 41725- [address] Mar, [facility] [id number] [place] [address] 9[address]15- [address] Mar, Seasonal allergies J30.2 [facility] [id number] [place] [address]15- [address] Mar, Visit for TB skin test Z11.1 and Screening for tuberculosis Z11.1 [facility] [id number] [place] [address] 10981- [address] Feb, [facility] [id number] [place] [address] Feb, Hypogonadism in male E29.1 [facility] [id number] [place] [address]- [address] Feb, [facility] [id number] [place] [address] 80497- [address] Jan, Seasonal allergies J30.2 and Hypogonadism in male E29.1 [facility] [id number] [place] [address] December, Pharyngitis, unspecified etiology J02.9 [facility] [address] [facility] [id number] [address] December, Pharyngitis due to other organism J02.8 and 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 [facility]ALK IN [facility] [address], [place] [address] December, Seasonal allergies J30.2 [facility] [address], [place] [address] Nov, [facility] [address], [place] [address] Nov, Encounter for immunization Z23 IMMUNIZATIONS No Known Immunizations SOCIAL HISTORY Never Assessed REASON FOR VISIT TB skin test - AZEEM [employer] PLAN OF CARE Activity Details Follow Up 48-72 hours Reason: VITAL SIGNS MEDICATIONS Unknown Medications RESULTS No Results PROCEDURES Procedure Date Ordered Result Body Site TB INTRADERMAL TEST Mar 15, 2018 INSTRUCTIONS MEDICATIONS ADMINISTERED No Known Medications MEDICAL (GENERAL) HISTORY Type Description Date Medical History lymphoma Medical History tachycardia Medical History asthma Medical History PTSD Surgical History Gallbladder removal Surgical History Tonsils removed Surgical History sinus surgery
--- OUTSIDE RECORDS SUMMARY | 2018-05-15 09:35 | XMS REPORT ---
Author Author BRYN LE Organization [facility] Address [address] [place] [address] Care Team Providers Care Diplomatic Interpreter/Translator Name Role Phone BRYN LE Unavailable PROBLEMS Type Condition ICD9-CM Code VLM06-YT Code Onset Dates Condition Status SNOMED Code Problem Hypogonadism in male E29.1 Active 91608349 Problem Seasonal allergies J30.2 Active 560161382 ALLERGIES No Information ENCOUNTERS Encounter Location Date Diagnosis [facility] [id number] [place] [address] Mar, [facility] [id number] [place] [address] 53369- 5[address] Mar, [facility] [id number] [place] [address] 29827- 2503 Mar, Seasonal allergies J30.2 [facility] [id number] [place] [address] 00648[address] 9[address] Mar, Visit for TB skin test Z11.1 and Screening for tuberculosis Z11.1 [facility] [id number] [place] [address] 52891- 98[address] Feb, [facility] [id number] [place] [address] Feb, Hypogonadism in male E29.1 [facility] [id number] [place] [address] 8[address]03- [address] Feb, [facility] [id number] [place] [address] 97970- 0[address] Jan, Seasonal allergies J30.2 and Hypogonadism in male E29.1 [facility] [id number] [place] [address] December, Pharyngitis, unspecified etiology J02.9 [facility] [id number] [address] December, Pharyngitis due to other organism J02.8 and 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 [facility] [address] [address] December, Seasonal allergies J30.2 [facility] [address] [address] Nov, [facility] [address] [address] Nov, Encounter for immunization Z23 IMMUNIZATIONS No Known Immunizations SOCIAL HISTORY Never Assessed REASON FOR VISIT Refill request PLAN OF CARE VITAL SIGNS MEDICATIONS Medication Instructions Dosage Frequency Start Date End Date Duration Status Symbicort 160-4.5 MCG/ACT Inhalation Twice a day 2 puffs 12h Active RESULTS No Results PROCEDURES No Known procedures INSTRUCTIONS MEDICATIONS ADMINISTERED No Known Medications MEDICAL (GENERAL) HISTORY Type Description Date Medical History lymphoma Medical History tachycardia Medical History asthma Medical History PTSD Surgical History Gallbladder removal Surgical History Tonsils removed Surgical History sinus surgery
--- OUTSIDE RECORDS SUMMARY | 2018-05-15 09:35 | XMS REPORT ---
Author Author BRYN LE Organization [facility] Address [address] [place] [address] Care Team Providers Care Chemists Name Role Phone BRYN LE Unavailable PROBLEMS Type Condition ICD9-CM Code FEA22-EU Code Onset Dates Condition Status SNOMED Code Problem Hypogonadism in male E29.1 Active 73183420 Problem Seasonal allergies J30.2 Active 956395235 ALLERGIES No Information ENCOUNTERS Encounter Location Date Diagnosis [facility] [id number] [place] [phone] Mar, [facility] [id number] [place] [address] [phone] Mar, [facility] [id number] [place] [address] 29555- [phone] Mar, Seasonal allergies J30.2 [facility] [id number] [place] [address] 43889- [phone] Mar, Visit for TB skin test Z11.1 and Screening for tuberculosis Z11.1 [facility] [id number] [place] [address] [phone]- [phone] Feb, [facility] [id number] [place] [phone] Feb, Hypogonadism in male E29.1 [facility] [id number] [place] [address] [phone]- [phone] Feb, [facility] [id number] [place] [address] [phone]- [phone] Jan, Seasonal allergies J30.2 and Hypogonadism in male E29.1 [facility] [id number] [place] [phone] [phone] December, Pharyngitis, unspecified etiology J02.9 [facility] [id number] [address] December, Pharyngitis due to other organism J02.8 and 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 [facility] [address] [address] December, Seasonal allergies J30.2 [facility] [address] [address] Nov, [facility] [id number] [place] [address] [phone]- [phone] Nov, Encounter for immunization Z23 IMMUNIZATIONS No Known Immunizations SOCIAL HISTORY Never Assessed REASON FOR VISIT letter PLAN OF CARE VITAL SIGNS MEDICATIONS Unknown Medications RESULTS No Results PROCEDURES No Known procedures INSTRUCTIONS MEDICATIONS ADMINISTERED No Known Medications MEDICAL (GENERAL) HISTORY Type Description Date Medical History lymphoma Medical History tachycardia Medical History asthma Medical History PTSD Surgical History Gallbladder removal Surgical History Tonsils removed Surgical History sinus surgery
--- OUTSIDE RECORDS SUMMARY | 2018-05-15 09:35 | XMS REPORT ---
Author Author BRYN LE Organization [facility] Address [address] [place] [address] Care Team Providers Care Project Safety Manager Name Role Phone BRYN LE Unavailable PROBLEMS Type Condition ICD9-CM Code DUC91-QY Code Onset Dates Condition Status SNOMED Code Problem Hypogonadism in male E29.1 Active 80658247 Problem Seasonal allergies J30.2 Active [id number] ALLERGIES No Information ENCOUNTERS Encounter Location Date Diagnosis [facility] [id number] [place] [address] 84583- [phone] Mar, [facility] [id number] [place] [address] [phone]- [phone] Mar, [facility] [id number] [place] [address] 37962- 1874 Mar, Seasonal allergies J30.2 [facility] [id number] [place] [address] [phone]- [phone] Mar, Visit for TB skin test Z11.1 and Screening for tuberculosis Z11.1 [facility] [id number] [place] [address] 41110- [phone] Feb, [facility] [id number] [place] [address] [phone] -[phone] Feb, Hypogonadism in male E29.1 [facility] [id number] [place] [address] [phone]- [phone] Feb, [facility] [id number] [place] [address] 98353- 4810 Jan, Seasonal allergies J30.2 and Hypogonadism in male E29.1 [facility] [id number] [place] [address]61 [phone] December, Pharyngitis, unspecified etiology J02.9 [facility] [address] [facility] [id number] [address] December, Pharyngitis due to other organism J02.8 and 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 [facility] [address] [address] December, Seasonal allergies J30.2 [facility] [id number] [address] Nov, [facility] [address] [address] Nov, Encounter for immunization Z23 IMMUNIZATIONS No Known Immunizations SOCIAL HISTORY Never Assessed REASON FOR VISIT Controlled Med Refill PLAN OF CARE VITAL SIGNS MEDICATIONS Medication Instructions Dosage Frequency Start Date End Date Duration Status Depo-Testosterone 100 MG/ML Intramuscular once monthly 1 ml Jan, Active RESULTS No Results PROCEDURES No Known procedures INSTRUCTIONS MEDICATIONS ADMINISTERED No Known Medications MEDICAL (GENERAL) HISTORY Type Description Date Medical History lymphoma Medical History tachycardia Medical History asthma Medical History PTSD Surgical History Gallbladder removal Surgical History Tonsils removed Surgical History sinus surgery
--- OUTSIDE RECORDS SUMMARY | 2018-05-15 09:35 | XMS REPORT ---
Author Author BRYN LE Organization [facility] Address [address] [place] [address] Care Team Providers Care Cnc Service Technician Name Role Phone BRYN LE Unavailable PROBLEMS Type Condition ICD9-CM Code LFP21-ST Code Onset Dates Condition Status SNOMED Code Problem Hypogonadism in male E29.1 Active 04139951 Problem Seasonal allergies J30.2 Active [id number] ALLERGIES No Information ENCOUNTERS Encounter Location Date Diagnosis [facility] [id number] [place] [address] 86739- [phone] Mar, [facility] [id number] [place] [address] [phone] Mar, [facility] [id number] [place] [address] [phone]- [phone] Mar, Seasonal allergies J30.2 [facility] [id number] [place] [address] 62849- [phone] Mar, Visit for TB skin test Z11.1 and Screening for tuberculosis Z11.1 [facility] [id number] [place] [address] 35263- 8294 Feb, [facility] [id number] [place] [address] [phone] -[phone] Feb, Hypogonadism in male E29.1 [facility] [id number] [place] [address] [phone]- [phone] Feb, [facility] [id number] [place] [address] 02808- 8569 Jan, Seasonal allergies J30.2 and Hypogonadism in male E29.1 [facility] [id number] [place] [address] [phone] -[phone] December, Pharyngitis, unspecified etiology J02.9 [facility] [address] [address] December, Pharyngitis due to other organism J02.8 and 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 [facility] [address] [address] December, Seasonal allergies J30.2 [facility] [address] [address] Nov, [facility] [id number] [place] [address] 81460- [phone] Nov, Encounter for immunization Z23 IMMUNIZATIONS No Known Immunizations SOCIAL HISTORY Never Assessed REASON FOR VISIT Requests return call PLAN OF CARE VITAL SIGNS MEDICATIONS Unknown Medications RESULTS No Results PROCEDURES No Known procedures INSTRUCTIONS MEDICATIONS ADMINISTERED No Known Medications MEDICAL (GENERAL) HISTORY Type Description Date Medical History lymphoma Medical History tachycardia Medical History asthma Medical History PTSD Surgical History Gallbladder removal Surgical History Tonsils removed Surgical History sinus surgery
[2018-05-15] MEDS ORDERED: LACTATED RINGERS 1,000 ML IV STA (09:40)
[2018-05-15] MEDS ORDERED: LACTATED RINGERS 1,000 ML IV ONE (09:43)
[2018-05-15] MEDS ORDERED: PROPOFOL INJECTION 50 ML IV ONE ×2 (09:51→10:11)
--- NOTE | 2018-05-15 10:00 | Progress Note-Pre Operative ---
Pre-Operative Progress Note H&P Reviewed The H&P was reviewed, patient examined and no changes noted. Date Seen by Provider: May 15, 2018 Time Seen by Provider: 10:00 Date H&P Reviewed: May 15, 2018 Time H&P Reviewed: 10:00 Pre-Operative Diagnosis: history polyp HAMILTON LOCK DO May 15, 2018 10:00
[2018-05-15] MEDS ORDERED: MIDAZOLAM 2 MG/2 ML (VERSED) VIAL ONE (10:11)
--- NOTE | 2018-05-15 11:08 | Discharge Inst-Simple/Standard ---
Discharge Inst-Standard Patient Instructions/Follow Up Plan of Care/Instructions/FU: 2 weeks Naina Activity as Tolerated: Yes Discharge Diet: Regular Diet HAMILTON LOCK DO May 15, 2018 11:08
--- NOTE | 2018-05-15 11:10 | Progress Note-Post Operative ---
Post-Operative Progess Note Surgeon (s)/Boring Mill Set Up Operator (s) Surgeon HAMILTON LOCK DO Boring Mill Set Up Operator: na Pre-Operative Diagnosis history polyp Post-Operative Diagnosis mucosal change cecum Procedure & Operative Findings Date of Procedure 05/15/18 Procedure Performed/Findings colonoscopy c cold bx cecum Anesthesia Type per continuous washer operator Estimated Blood Loss Estimated blood loss (mL): min Specimens/Packing Specimens Removed cecum HAMILTON LOCK DO May 15, 2018 11:10
[2018-05-15 11:20] VITALS: BP 100/59
--- NOTE | 2018-05-15 11:24 | Anesthesia-General Post-Op ---
MAC Patient Condition Mental Status/LOC: Same as Preop Cardiovascular: Satisfactory Nausea/Vomiting: Absent Respiratory: Satisfactory Pain: Controlled Complications: Absent Post Op Complications Complications None Follow Up Care/Instructions Patient Instructions None needed. Anesthesiology Discharge Order Discharge Order Patient is doing well, no complaints, stable vital signs, no apparent adverse anesthesia problems. No complications reported per nursing. NITIN TRIPP CRNA May 15, 2018 11:24
[2018-05-15 11:40] VITALS: BP 110/68
[2018-05-15 11:54] VITALS: BP 110/68
--- NOTE | 2018-05-15 15:06 | OPERATIVE REPORT ---
DATE OF SERVICE: 05/15/2018 PREOPERATIVE DIAGNOSIS: History of colon polyps. POSTOPERATIVE DIAGNOSIS: Mucosal change to cecum. PROCEDURE: Colonoscopy with cold biopsy of the cecum. SURGEON: Hamilton Chew DO ANESTHESIA: Per LOCAL SUPERINTENDENT. ESTIMATED BLOOD LOSS: None. COMPLICATIONS: None. INDICATIONS: The patient is a 33-year-old male with a history of colon polyps. He was recommended to have a repeat colonoscopy. He understands risks and benefits and wished to proceed with procedure. Consent was signed on chart. DESCRIPTION OF PROCEDURE: The patient was taken to the endoscopy suite, placed in left lateral recumbent position. Timeout was performed. Digital rectal exam was performed. There were no palpable polyps, mass or ulcerations. The scope was inserted into the rectum and advanced all the way to the cecum with minimal difficulty. Prep was adequate. Within the cecum, some slight mucosal change which biopsy of this area was obtained. Scope was continuously retracted back. There were no polyps, mass or ulcerations within the cecum, ascending, transverse, descending and sigmoid colon. Once in the rectum, scope was retroflexed noting no other pathology. Scope was returned to its normal position, slowly withdrawn until completely removed. RECOMMENDATIONS: The patient will follow up in the office in 2 weeks to discuss pathology results. The patient with a history of colon polyps, would recommend repeat colonoscopy in 5 years. If he has any problems prior to that, he should be reevaluated at that time. Job ID: [id number] DocumentID: [id number] Dictated Date: 05/15/2018 12:34:28 Wet Roaster Date: 05/15/2018 15:06:18 Dictated By: HAMILTON CHEW DO
== END 2018-05-15 11:45 | disposition home or self-care (01) ==
LOC: ENDO 09:32
PROVIDERS: ATTEND Surgery
DX: Z09 Encounter for follow-up examination after completed treatment for conditions other than malignant neoplasm (principal); Z86.010 Personal history of colon polyps; C85.90 Non-Hodgkin lymphoma, unspecified, unspecified site; J45.909 Unspecified asthma, uncomplicated; K21.9 Gastro-esophageal reflux disease without esophagitis; E66.01 Morbid (severe) obesity due to excess calories; Z68.41 Body mass index [BMI] 40.0-44.9, adult; Z79.899 Other long term (current) drug therapy

== ENCOUNTER 2018-06-27 08:06 | Outpatient (RCR) | payer MEDICARE, MEDICAID ==
[2018-05-16 10:08] LABS: BASOPHILS % (AUTO) 0 % (0-10); EOSINOPHILS # (AUTO) 0.2 10^3/uL (0.0-0.3); EOSINOPHILS % (AUTO) 2 % (0-10); HEMATOCRIT 42 % (40-54); HEMOGLOBIN 14.5 G/DL (13.3-17.7); LYMPHOCYTES % (AUTO) 39 % (12-44); MEAN CORPUSCULAR HEMOGLOBIN 29 PG (25-34); MEAN CORPUSCULAR HGB CONC 35 G/DL (32-36); MEAN CORPUSCULAR VOLUME 82 FL (80-99); MEAN PLATELET VOLUME 10.8 FL (7.4-10.4); MONOCYTES # (AUTO) 0.5 X 10^3 (0.0-1.0); MONOCYTES % (AUTO) 6 % (0-12); NEUTROPHILS # (AUTO) 4.1 X 10^3 (1.8-7.8); NEUTROPHILS % (AUTO) 52 % (42-75); PLATELET COUNT 171 10^3/uL (130-400); RED BLOOD COUNT 5.07 10^6/uL (4.35-5.85); RED CELL DISTRIBUTION WIDTH 14.9 % (10.0-14.5); WHITE BLOOD COUNT 7.7 10^3/uL (4.3-11.0)
[2018-05-16 10:48] LABS: ALANINE AMINOTRANSFERASE 48 U/L (0-55); ALBUMIN 3.9 GM/DL (3.2-4.5); ALKALINE PHOSPHATASE 117 U/L (40-136); BILIRUBIN,TOTAL 0.4 MG/DL (0.1-1.0); BUN/CREATININE RATIO 11; CALCIUM 9.3 MG/DL (8.5-10.1); CARBON DIOXIDE 23 MMOL/L (21-32); CHLORIDE 108 MMOL/L (98-107); CREATININE SERUM 1.03 MG/DL (0.60-1.30); GFR ESTIMATED > 60; GLUCOSE 120 MG/DL (70-105); POTASSIUM 4.4 MMOL/L (3.6-5.0); SODIUM 138 MMOL/L (135-145)
[~2018-06-27 08:06] MED LIST changes: +ACETAMINOPHEN 500 MG TAB (TYLENOL) CANCER CTR PO PRN; +ALTEPLASE 2 MG (CATHFLO) CANCER CENTER IV ONE; +IVIG 10 GM (PRIVIGEN) CANCER C 100 ML IV SCH; +IVIG 20 GM (PRIVIGEN) CANCER C 200 ML IV SCH; +diphenhydrAMINE 25 MG TAB (BENADRYL) CANCER CENTER PO SCH
[2018-06-27 08:29] LABS: BASOPHILS % (AUTO) 0 % (0-10); EOSINOPHILS # (AUTO) 0.2 10^3/uL (0.0-0.3); EOSINOPHILS % (AUTO) 2 % (0-10); HEMATOCRIT 46 % (40-54); HEMOGLOBIN 15.2 G/DL (13.3-17.7); LYMPHOCYTES # (AUTO) 4.3 X 10^3 (1.0-4.0); LYMPHOCYTES % (AUTO) 37 % (12-44); MEAN CORPUSCULAR HEMOGLOBIN 28 PG (25-34); MEAN CORPUSCULAR HGB CONC 33 G/DL (32-36); MEAN CORPUSCULAR VOLUME 84 FL (80-99); MEAN PLATELET VOLUME 10.4 FL (7.4-10.4); MONOCYTES # (AUTO) 0.7 X 10^3 (0.0-1.0); MONOCYTES % (AUTO) 6 % (0-12); NEUTROPHILS # (AUTO) 6.4 X 10^3 (1.8-7.8); NEUTROPHILS % (AUTO) 55 % (42-75); PLATELET COUNT 193 10^3/uL (130-400); RED BLOOD COUNT 5.45 10^6/uL (4.35-5.85); RED CELL DISTRIBUTION WIDTH 15.2 % (10.0-14.5); WHITE BLOOD COUNT 11.6 10^3/uL (4.3-11.0)
[2018-06-27 09:00] LABS: CARBON DIOXIDE 24 MMOL/L (21-32); CHLORIDE 107 MMOL/L (98-107); POTASSIUM 4.2 MMOL/L (3.6-5.0); SODIUM 140 MMOL/L (135-145)
[2018-06-27 09:01] LABS: ALANINE AMINOTRANSFERASE 34 U/L (0-55); ALBUMIN 4.2 GM/DL (3.2-4.5); ALKALINE PHOSPHATASE 117 U/L (40-136); BILIRUBIN,TOTAL 0.5 MG/DL (0.1-1.0); BUN/CREATININE RATIO 15; CALCIUM 9.5 MG/DL (8.5-10.1); CREATININE SERUM 1.01 MG/DL (0.60-1.30); GFR ESTIMATED > 60; GLUCOSE 115 MG/DL (70-105); TOTAL PROTEIN 6.6 GM/DL (6.4-8.2)
[2018-08-08 08:30] LABS: BASOPHILS % (AUTO) 0 % (0-10); EOSINOPHILS # (AUTO) 0.2 10^3/uL (0.0-0.3); EOSINOPHILS % (AUTO) 2 % (0-10); HEMATOCRIT 43 % (40-54); HEMOGLOBIN 14.5 G/DL (13.3-17.7); LYMPHOCYTES # (AUTO) 3.2 X 10^3 (1.0-4.0); LYMPHOCYTES % (AUTO) 40 % (12-44); MEAN CORPUSCULAR HEMOGLOBIN 28 PG (25-34); MEAN CORPUSCULAR HGB CONC 34 G/DL (32-36); MEAN CORPUSCULAR VOLUME 82 FL (80-99); MEAN PLATELET VOLUME 10.3 FL (7.4-10.4); MONOCYTES # (AUTO) 0.6 X 10^3 (0.0-1.0); MONOCYTES % (AUTO) 7 % (0-12); NEUTROPHILS % (AUTO) 50 % (42-75); PLATELET COUNT 178 10^3/uL (130-400); RED BLOOD COUNT 5.18 10^6/uL (4.35-5.85); RED CELL DISTRIBUTION WIDTH 14.9 % (10.0-14.5)
[2018-08-08 08:48] LABS: ALANINE AMINOTRANSFERASE 34 U/L (0-55); ALKALINE PHOSPHATASE 125 U/L (40-136); BILIRUBIN,TOTAL 0.4 MG/DL (0.1-1.0); BUN/CREATININE RATIO 16; CALCIUM 9.1 MG/DL (8.5-10.1); CARBON DIOXIDE 19 MMOL/L (21-32); CHLORIDE 109 MMOL/L (98-107); CREATININE SERUM 0.87 MG/DL (0.60-1.30); GFR ESTIMATED > 60; GLUCOSE 103 MG/DL (70-105); POTASSIUM 3.9 MMOL/L (3.6-5.0); SODIUM 139 MMOL/L (135-145); TOTAL PROTEIN 6.3 GM/DL (6.4-8.2)
== END 2018-08-08 07:58 | disposition home or self-care (01) ==
LOC: ONC 08:06
PROVIDERS: ATTEND Internal Medicine Hematology & Oncology
DX: D83.0 Common variable immunodeficiency with predominant abnormalities of B-cell numbers and function (principal); Z85.72 Personal history of non-Hodgkin lymphomas; K63.9 Disease of intestine, unspecified; J45.909 Unspecified asthma, uncomplicated; R00.0 Tachycardia, unspecified; E66.9 Obesity, unspecified; Z68.41 Body mass index [BMI] 40.0-44.9, adult; Z86.010 Personal history of colon polyps; Z79.899 Other long term (current) drug therapy
CPT/HCPCS: 36591; 36593; 80053; 82784; 85025; 96365; 96366

== ENCOUNTER 2018-10-31 08:31 | Outpatient (RCR) | payer MEDICARE, MEDICAID ==
[~2018-10-31 08:31] MED LIST changes: -ALTEPLASE 2 MG (CATHFLO) CANCER CENTER IV ONE
[2018-10-31 08:48] LABS: BASOPHILS # (AUTO) 0.1 10^3/uL (0.0-0.1); BASOPHILS % (AUTO) 1 % (0-10); EOSINOPHILS # (AUTO) 0.1 10^3/uL (0.0-0.3); EOSINOPHILS % (AUTO) 1 % (0-10); HEMATOCRIT 47 % (40-54); HEMOGLOBIN 15.9 G/DL (13.3-17.7); LYMPHOCYTES # (AUTO) 4.7 X 10^3 (1.0-4.0); LYMPHOCYTES % (AUTO) 43 % (12-44); MEAN CORPUSCULAR HEMOGLOBIN 28 PG (25-34); MEAN CORPUSCULAR HGB CONC 34 G/DL (32-36); MEAN CORPUSCULAR VOLUME 82 FL (80-99); MEAN PLATELET VOLUME 10.3 FL (7.4-10.4); MONOCYTES # (AUTO) 0.7 X 10^3 (0.0-1.0); MONOCYTES % (AUTO) 6 % (0-12); NEUTROPHILS # (AUTO) 5.4 X 10^3 (1.8-7.8); NEUTROPHILS % (AUTO) 50 % (42-75); PLATELET COUNT 214 10^3/uL (130-400); RED CELL DISTRIBUTION WIDTH 15.4 % (10.0-14.5); WHITE BLOOD COUNT 10.9 10^3/uL (4.3-11.0)
[2018-10-31 09:08] LABS: ALANINE AMINOTRANSFERASE 42 U/L (0-55); ALBUMIN 4.3 GM/DL (3.2-4.5); ALKALINE PHOSPHATASE 121 U/L (40-136); BILIRUBIN,TOTAL 0.5 MG/DL (0.1-1.0); BUN/CREATININE RATIO 13; CALCIUM 9.4 MG/DL (8.5-10.1); CARBON DIOXIDE 24 MMOL/L (21-32); CHLORIDE 106 MMOL/L (98-107); CREATININE SERUM 0.99 MG/DL (0.60-1.30); GFR ESTIMATED > 60; GLUCOSE 92 MG/DL (70-105); POTASSIUM 4.2 MMOL/L (3.6-5.0); SODIUM 140 MMOL/L (135-145); TOTAL PROTEIN 6.6 GM/DL (6.4-8.2)
== END 2018-11-06 | disposition home or self-care (01) ==
LOC: ONC 08:31
PROVIDERS: ATTEND Internal Medicine Hematology & Oncology
DX: D83.0 Common variable immunodeficiency with predominant abnormalities of B-cell numbers and function (principal); Z85.72 Personal history of non-Hodgkin lymphomas; K63.9 Disease of intestine, unspecified; J45.909 Unspecified asthma, uncomplicated; R00.0 Tachycardia, unspecified; E66.9 Obesity, unspecified; Z68.41 Body mass index [BMI] 40.0-44.9, adult; Z86.010 Personal history of colon polyps; Z79.899 Other long term (current) drug therapy
CPT/HCPCS: 36591; 80053; 82784; 85025; 96365; 96366

== ENCOUNTER 2019-05-15 12:24 | Outpatient (RCR) | payer MEDICARE, MEDICAID ==
[2019-04-12 14:19] LABS: BASOPHILS # (AUTO) 0.1 10^3/uL (0.0-0.1); BASOPHILS % (AUTO) 0 % (0-10); EOSINOPHILS # (AUTO) 0.2 10^3/uL (0.0-0.3); EOSINOPHILS % (AUTO) 2 % (0-10); HEMATOCRIT 44 % (40-54); HEMOGLOBIN 14.8 G/DL (13.3-17.7); LYMPHOCYTES % (AUTO) 35 % (12-44); MEAN CORPUSCULAR HEMOGLOBIN 28 PG (25-34); MEAN CORPUSCULAR HGB CONC 34 G/DL (32-36); MEAN CORPUSCULAR VOLUME 82 FL (80-99); MEAN PLATELET VOLUME 10.2 FL (7.4-10.4); MONOCYTES # (AUTO) 0.7 X 10^3 (0.0-1.0); MONOCYTES % (AUTO) 6 % (0-12); NEUTROPHILS # (AUTO) 6.4 X 10^3 (1.8-7.8); NEUTROPHILS % (AUTO) 57 % (42-75); PLATELET COUNT 236 10^3/uL (130-400); RED CELL DISTRIBUTION WIDTH 15.8 % (10.0-14.5); WHITE BLOOD COUNT 11.3 10^3/uL (4.3-11.0)
[2019-04-12 14:40] LABS: ALANINE AMINOTRANSFERASE 46 U/L (0-55); ALBUMIN 3.9 GM/DL (3.2-4.5); ALKALINE PHOSPHATASE 137 U/L (40-136); BILIRUBIN,TOTAL 0.4 MG/DL (0.1-1.0); BUN/CREATININE RATIO 13; CALCIUM 9.1 MG/DL (8.5-10.1); CARBON DIOXIDE 25 MMOL/L (21-32); CHLORIDE 107 MMOL/L (98-107); CREATININE SERUM 0.86 MG/DL (0.60-1.30); GFR ESTIMATED > 60; GLUCOSE 117 MG/DL (70-105); POTASSIUM 3.8 MMOL/L (3.6-5.0); SODIUM 139 MMOL/L (135-145); TOTAL PROTEIN 6.5 GM/DL (6.4-8.2)
[~2019-05-15 12:24] MED LIST changes: -ACETAMINOPHEN 500 MG TAB (TYLENOL) CANCER CTR PO PRN; +ACETAMINOPHEN 500 MG TAB (TYLENOL) CANCER CTR PO SCH; +IMMU GLOBULIN,GAMMA (IGG) 100 ML IV SCH; +IMMUNE GLOBULIN,GAMMA (IGG) 200 ML IV SCH
[2019-06-06] MEDS ORDERED: CEPH-507 PO (15:54)
[2019-06-06] MEDS ORDERED: DIPH25CA79 PO (15:54)
[2019-06-12 13:16] LABS: BASOPHILS # (AUTO) 0.1 10^3/uL (0.0-0.1); BASOPHILS % (AUTO) 0 % (0-10); EOSINOPHILS # (AUTO) 0.2 10^3/uL (0.0-0.3); EOSINOPHILS % (AUTO) 1 % (0-10); HEMATOCRIT 45 % (40-54); HEMOGLOBIN 15.3 G/DL (13.3-17.7); LYMPHOCYTES # (AUTO) 6.8 X 10^3 (1.0-4.0); LYMPHOCYTES % (AUTO) 47 % (12-44); MEAN CORPUSCULAR HEMOGLOBIN 28 PG (25-34); MEAN CORPUSCULAR HGB CONC 34 G/DL (32-36); MEAN CORPUSCULAR VOLUME 83 FL (80-99); MEAN PLATELET VOLUME 10.4 FL (7.4-10.4); MONOCYTES % (AUTO) 7 % (0-12); NEUTROPHILS # (AUTO) 6.6 X 10^3 (1.8-7.8); NEUTROPHILS % (AUTO) 45 % (42-75); PLATELET COUNT 232 10^3/uL (130-400); RED CELL DISTRIBUTION WIDTH 15.4 % (10.0-14.5); WHITE BLOOD COUNT 14.6 10^3/uL (4.3-11.0)
[2019-06-12 13:44] LABS: ALANINE AMINOTRANSFERASE 40 U/L (0-55); ALBUMIN 4.3 GM/DL (3.2-4.5); ALKALINE PHOSPHATASE 115 U/L (40-136); BILIRUBIN,TOTAL 0.4 MG/DL (0.1-1.0); BUN/CREATININE RATIO 14; CALCIUM 9.5 MG/DL (8.5-10.1); CARBON DIOXIDE 24 MMOL/L (21-32); CHLORIDE 107 MMOL/L (98-107); CREATININE SERUM 0.85 MG/DL (0.60-1.30); GFR ESTIMATED > 60; GLUCOSE 95 MG/DL (70-105); POTASSIUM 3.6 MMOL/L (3.6-5.0); SODIUM 142 MMOL/L (135-145); TOTAL PROTEIN 6.8 GM/DL (6.4-8.2)
== END 2019-06-12 12:50 | disposition home or self-care (01) ==
LOC: ONC 12:24
PROVIDERS: ATTEND Internal Medicine Hematology & Oncology
DX: D83.0 Common variable immunodeficiency with predominant abnormalities of B-cell numbers and function (principal); Z85.72 Personal history of non-Hodgkin lymphomas; K63.9 Disease of intestine, unspecified; J45.909 Unspecified asthma, uncomplicated; R00.0 Tachycardia, unspecified; E66.9 Obesity, unspecified; Z68.41 Body mass index [BMI] 40.0-44.9, adult; Z86.010 Personal history of colon polyps; Z79.899 Other long term (current) drug therapy
CPT/HCPCS: 36415; 36591; 80053; 82784; 85025; 96365; 96366; J1569

== ENCOUNTER 2019-06-06 14:15 | Emergency (ER) | payer MEDICARE, MEDICAID ==
[~2019-06-06] VITALS: Ht 175.2 cm; Wt 134.0 kg
[~2019-06-06 14:15] MED LIST changes: -ACETAMINOPHEN 500 MG TAB (TYLENOL) CANCER CTR PO SCH; -IMMU GLOBULIN,GAMMA (IGG) 100 ML IV SCH; -IMMUNE GLOBULIN,GAMMA (IGG) 200 ML IV SCH; -IVIG 10 GM (PRIVIGEN) CANCER C 100 ML IV SCH; -IVIG 20 GM (PRIVIGEN) CANCER C 200 ML IV SCH; -diphenhydrAMINE 25 MG TAB (BENADRYL) CANCER CENTER PO SCH
--- NOTE | 2019-06-06 14:36 | ED General ---
General Chief Complaint: Allergic Reaction Stated Complaint: ALLERGIC REACTION Nursing Triage Note: Pt to ED with concern of allergic reaction to Levaquin. Pt reports beginning AB today for upper respitory infection. Pt reports itching and SOB. Nursing Sepsis Screen: No Definite Risk Source of Information: Patient Exam Limitations: No Limitations History of Present Illness Date Seen by Provider: Jun 06, 2019 Time Seen by Provider: 14:33 Initial Comments To ER with reports of an allergic reaction. He comes by private vehicle. He reports itching and shortness of breath. This began about noon today after taking his first dose of Levaquin 11:30 today prescribed this morning by Dr. Dent for an upper respiratory infection. He is currently on IVIG for lymphoma. Symptoms are runny nose and sore throat slight cough for the past few days. No fever. Timing/Duration: 1/2 Hour Severity: Moderate Associated Systoms: Denies Symptoms Allergies and Home Medications Allergies Coded Allergies: Penicillins (Verified Allergy, Unknown, 05/11/18) amoxicillin (Verified Allergy, Unknown, 05/11/18) hydrocodone (Verified Allergy, Unknown, 05/11/18) levofloxacin (Verified Allergy, Unknown, Itching, 06/06/19) SOB morphine (Verified Allergy, Unknown, 05/11/18) oxycodone (Verified Allergy, Unknown, 05/11/18) Home Medications Atenolol 50 Mg Tablet, 50 MG PO DAILY, (Reported) Budesonide/Formoterol Fumarate 10.2 Gm Hfa.aer.ad, 2 PUFF IH BID, (Reported) Cetirizine HCl 10 Mg Tablet, 10 MG PO DAILY, (Reported) Doxycycline Hyclate 100 Mg Tablet, 100 MG PO BID Prescribed by: ISELA BRUCE on 04/13/182137 Omeprazole 40 Mg Capsule.dr, 40 MG PO BID, (Reported) Patient Home Medication List Home Medication List Reviewed: Yes Review of Systems Review of Systems Constitutional: see HPI EENTM: see HPI Respiratory: no symptoms reported Cardiovascular: no symptoms reported Genitourinary: no symptoms reported Musculoskeletal: no symptoms reported Skin: see HPI Psychiatric/Neurological: No Symptoms Reported Hematologic/Lymphatic: No Symptoms Reported Past Dwusrtr-Rdkqui-Xxtphy Hx Patient Social History Alcohol Use: Denies Use Recreational Drug Use: No 2nd Hand Smoke Exposure: No Recent Foreign Travel: No Contact w/Someone Who Travel: No Recent Infectious Disease Expo: No Recent Hopitalizations: No Immunizations Up To Date Date of Influenza Vaccine: May 07, 2018 Seasonal Allergies Seasonal Allergies: Yes Past Medical History Surgeries: Yes (TOE LEFT FOOT, ABD BX) Appendectomy, Tonsillectomy Respiratory: Yes Asthma Cardiac: No Neurological: No Reproductive Disorders: No Sexually Transmitted Disease: No HIV/AIDS: No Genitourinary: No Gastrointestinal: Yes Gastroesophageal Reflux, Polyps Musculoskeletal: Yes Arthritis, Chronic Back Pain Endocrine: No HEENT: No Loss of Vision: Denies Hearing Impairment: Denies Cancer: Yes Lymphoma Did You Recieve Any Treatments: Yes What Type of Treatment Did You: Chemotherapy Psychosocial: Yes (MILD) Anxiety, Depression Integumentary: No Blood Disorders: No Adverse Reaction/Blood Tranf: No (HAS HAD BLOOD WITH NO REACTION) Physical Exam Vital Signs Vital Signs - First Documented 06/06/19 14:15 Temp 36.4 Pulse 90 Resp 18 B/P (MAP) 139/95 (110) Pulse Ox 98 O2 Delivery Room Air Capillary Refill : Less Than 3 Seconds Height, Weight, BMI Height: 5'9.00" Weight: 275lbs. 0.0oz. 124.683760jy; 43.00 BMI Method:Stated General Appearance: No Apparent Distress, WD/WN, Obese, Other (alert pleasant and in no distress) Eyes: Bilateral Eye Normal Inspection, Bilateral Eye PERRL, Bilateral Eye EOMI HEENT: PERRL/EOMI, TMs Normal Neck: Full Range of Motion, Normal Inspection Respiratory: No Accessory Muscle Use, No Respiratory Distress Cardiovascular: Regular Rate, Rhythm, Normal Peripheral Pulses Gastrointestinal: Non Tender, Soft Extremity: Normal Capillary Refill, Normal Inspection Neurologic/Psychiatric: Alert, Oriented x3 Skin: Normal Color, Warm/Dry, Other (no visible rash or wheals) Progress/Results/Core Measures Suspected Sepsis Recent Fever Within 48 Hours: No Infection Criteria Present: None New/Unexplained Altered Menta: No Sepsis Screen: No Definite Risk SIRS Temperature: Pulse: 90 Respiratory Rate: 18 Blood Pressure 139 /95 Mean: 110 Results/Orders My Orders Orders - JIHAN INTERIANO APRN Ed Iv/Invasive Line Start (06/06/19 14:32) Diphenhydramine Injection (Benadryl Inje (06/06/19 14:45) Famotidine Injection (Pepcid Injection) (06/06/19 14:45) Methylprednisolone Sod Succ (Solu-Medrol (06/06/19 14:45) Ondansetron Injection (Zofran Injectio (06/06/19 15:00) Medications Given in ED Current Medications Medications Dose Ordered Sig/Janelle Route Start Time Stop Time Status Last Admin Dose Admin Diphenhydramine HCl 25 mg ONCE ONCE IVP 06/06/19 14:45 06/06/19 14:46 DC 06/06/19 14:38 25 MG Famotidine 20 mg ONCE ONCE IVP 06/06/19 14:45 06/06/19 14:46 DC 06/06/19 14:45 20 MG Methylprednisolone Sodium Succinate 125 mg ONCE ONCE IVP 06/06/19 14:45 06/06/19 14:46 DC 06/06/19 14:41 125 MG Ondansetron HCl 8 mg ONCE ONCE IVP 06/06/19 15:00 06/06/19 15:01 DC 06/06/19 14:55 8 MG Vital Signs/I&O 06/06/19 14:15 Temp 36.4 Pulse 90 Resp 18 B/P (MAP) 139/95 (110) Pulse Ox 98 O2 Delivery Room Air Capillary Refill : Less Than 3 Seconds Blood Pressure Mean: 110 POS Departure Impression Primary Impression: Allergic reaction Qualified Codes: T78.40XA - Allergy, unspecified, initial encounter Disposition: HOME, SELF-CARE Condition: Stable Departure-Patient Inst. Decision time for Depature: 15:19 Patient Instructions: Food Allergy Add. Discharge Instructions: 1. Return to ER for any concerns 2. Benadryl one tablet every 4-6 hours as needed for any recurrent itching 2. Stop the Levaquin, replace it with the Keflex. All discharge instructions reviewed with patient and/or family. Voiced understanding. Scripts Diphenhydramine HCl (Benadryl) 25 Mg Capsule 25 MG PO Q4H PRN for ITCHING, #30 CAP Prov: JIHAN INTERIANO EPOXY SPECIALIST 06/06/19 Cephalexin (Keflex) 500 Mg Capsule 500 MG PO TID, #21 CAP Prov: JIHAN INTERIANO EPOXY SPECIALIST 06/06/19 Copy Copies To 1: TERRELL DENT MD, PETER J EPOXY SPECIALIST Jun 06, 2019 14:36 POS
[2019-06-06] MEDS ORDERED: diphenhydrAMINE 50 MG/ML INJ (BENADRYL) IVP ONE (14:45)
[2019-06-06] MEDS ORDERED: FAMOTIDINE 20MG/2ML IV (PEPCID) IVP ONE (14:45)
[2019-06-06] MEDS ORDERED: methylPREDNISolone 125 MG (Solu-MEDROL) VIAL IVP ONE (14:45)
[2019-06-06] MEDS ORDERED: ONDANSETRON 4 MG/2 ML (SDV) Z0FRAN IVP ONE (15:00)
--- NOTE | 2019-06-06 15:27 | NUR ---
Pt reports feeling better at this time.
[2019-06-06] MEDS ORDERED: CEPH-507 PO (15:54)
[2019-06-06] MEDS ORDERED: DIPH25CA79 PO (15:54)
[2019-06-06 15:59] VITALS: BP 129/85
== END 2019-06-06 15:59 | disposition home or self-care (01) ==
LOC: EDUNIT# 14:15 → ER 14:16
DX: T78.40XA Allergy, unspecified, initial encounter (principal); J45.909 Unspecified asthma, uncomplicated; K21.9 Gastro-esophageal reflux disease without esophagitis; F41.9 Anxiety disorder, unspecified; F32.9 Major depressive disorder, single episode, unspecified; Z85.72 Personal history of non-Hodgkin lymphomas; Z90.49 Acquired absence of other specified parts of digestive tract; Z88.0 Allergy status to penicillin; Z88.5 Allergy status to narcotic agent; Z88.1 Allergy status to other antibiotic agents; Z90.89 Acquired absence of other organs
CPT/HCPCS: 99283

== ENCOUNTER 2019-06-12 15:25 | Outpatient (RCR) | payer MEDICARE, MEDICAID ==
[~2019-06-12 15:25] MED LIST changes: +ACETAMINOPHEN 500 MG TAB (TYLENOL) CANCER CTR PO ONE; +ACETAMINOPHEN 500 MG TAB (TYLENOL) CANCER CTR PO SCH; +CEPH-507 PO; +DIPH25CA79 PO; +IVIG 10 GM (PRIVIGEN) CANCER C 100 ML IV ONE; +IVIG 10 GM (PRIVIGEN) CANCER C 100 ML IV SCH; +IVIG 20 GM (PRIVIGEN) CANCER C 200 ML IV ONE; +IVIG 20 GM (PRIVIGEN) CANCER C 200 ML IV SCH; +diphenhydrAMINE 25 MG TAB (BENADRYL) CANCER CENTER PO SCH
== END 2019-08-13 | disposition home or self-care (01) ==
LOC: ONC 15:25
PROVIDERS: ATTEND Internal Medicine Hematology & Oncology
DX: Z51.11 Encounter for antineoplastic chemotherapy (principal); D83.9 Common variable immunodeficiency, unspecified; K63.9 Disease of intestine, unspecified; J45.909 Unspecified asthma, uncomplicated; R00.0 Tachycardia, unspecified; E66.9 Obesity, unspecified; Z68.41 Body mass index [BMI] 40.0-44.9, adult; Z86.010 Personal history of colon polyps; Z79.899 Other long term (current) drug therapy; Z85.72 Personal history of non-Hodgkin lymphomas
CPT/HCPCS: 36591; 96365; 96366

== ENCOUNTER → 2019-07-08 | Outpatient (CLI) | payer MEDICAID ==
[~2019-07-08] MED LIST changes: -ACETAMINOPHEN 500 MG TAB (TYLENOL) CANCER CTR PO ONE; -ACETAMINOPHEN 500 MG TAB (TYLENOL) CANCER CTR PO SCH; -IVIG 10 GM (PRIVIGEN) CANCER C 100 ML IV ONE; -IVIG 10 GM (PRIVIGEN) CANCER C 100 ML IV SCH; -IVIG 20 GM (PRIVIGEN) CANCER C 200 ML IV ONE; -IVIG 20 GM (PRIVIGEN) CANCER C 200 ML IV SCH; -diphenhydrAMINE 25 MG TAB (BENADRYL) CANCER CENTER PO SCH
[2019-07-08 10:43] LABS: BASOPHILS % (AUTO) 1 % (0-10); EOSINOPHILS # (AUTO) 0.1 10^3/uL (0.0-0.3); EOSINOPHILS % (AUTO) 1 % (0-10); HEMATOCRIT 48 % (40-54); HEMOGLOBIN 15.9 G/DL (13.3-17.7); LYMPHOCYTES # (AUTO) 3.2 X 10^3 (1.0-4.0); LYMPHOCYTES % (AUTO) 39 % (12-44); MEAN CORPUSCULAR HEMOGLOBIN 28 PG (25-34); MEAN CORPUSCULAR HGB CONC 33 G/DL (32-36); MEAN CORPUSCULAR VOLUME 84 FL (80-99); MEAN PLATELET VOLUME 10.5 FL (7.4-10.4); MONOCYTES # (AUTO) 0.8 X 10^3 (0.0-1.0); MONOCYTES % (AUTO) 9 % (0-12); NEUTROPHILS # (AUTO) 4.2 X 10^3 (1.8-7.8); NEUTROPHILS % (AUTO) 50 % (42-75); PLATELET COUNT 168 10^3/uL (130-400); RED CELL DISTRIBUTION WIDTH 15.4 % (10.0-14.5); WHITE BLOOD COUNT 8.3 10^3/uL (4.3-11.0)
--- NOTE | 2019-07-08 10:45 | Diagnostic Imaging Report ---
EXAMINATION: Chest 2 view HISTORY: COMMON VARIABLE IMMUNODEFICIENCY COMPARISON: 04/13/2018 FINDINGS: Stable left port with the tip overlying the low SVC. The lung volumes are normal. No focal consolidation is seen. No large pleural effusion or pneumothorax is seen. The cardiomediastinal silhouette is prominent. No acute osseous abnormality is seen. IMPRESSION: 1. No acute pleuroparenchymal process. 2. Stable left port. 3. Stable prominent cardiac silhouette. Dictated by: Dictated on workstation # [id number]
== END ==
LOC: RAD 09:51
PROVIDERS: ATTEND Pediatrics
DX: D83.9 Common variable immunodeficiency, unspecified (principal)
CPT/HCPCS: 36415; 71046; 85025

== ENCOUNTER 2020-08-26 12:21 | Emergency (ER) | payer MEDICARE, MEDICAID ==
[~2020-08-26] VITALS: Ht 175 cm; Wt 139.0 kg
[~2020-08-26 12:21] MED LIST changes: +OMEP40CA27 PO; -OMEP40CA36 PO
--- NOTE | 2020-08-26 12:27 | ED EENT ---
History of Present Illness General Chief Complaint: Ear Problems Stated Complaint: R EAR ACHE Source: patient Exam Limitations: no limitations History of Present Illness Date Seen by Provider: Aug 26, 2020 Time Seen by Provider: 12:25 Initial Comments This is a 35 yo male who presents to the ED with right ear pain since this morning. No pre-treatment. Denies fever, chills, cough, shortness of breath, N/V/D. No other complaints. Timing/Duration: abrupt Location: ear (R) Prearrival Treatment: no prearrival treatment Associated Symptoms: denies symptoms Allergies and Home Medications Allergies Coded Allergies: Penicillins (Verified Allergy, Unknown, 05/11/18) amoxicillin (Verified Allergy, Unknown, 05/11/18) hydrocodone (Verified Allergy, Unknown, 05/11/18) levofloxacin (Verified Allergy, Unknown, Itching, 06/06/19) SOB morphine (Verified Allergy, Unknown, 05/11/18) oxycodone (Verified Allergy, Unknown, 05/11/18) Home Medications Atenolol 50 Mg Tablet, 50 MG PO DAILY, (Reported) Budesonide/Formoterol Fumarate 10.2 Gm Hfa.aer.ad, 2 PUFF IH BID, (Reported) Cefdinir 300 Mg Capsule, 300 MG PO BID Prescribed by: LOU BARRIENTOS on 08/26/20 1304 Cephalexin 500 Mg Capsule, 500 MG PO TID Prescribed by: JIHAN INTERIANO on 06/06/19 155 Cetirizine HCl 10 Mg Tablet, 10 MG PO DAILY, (Reported) Diphenhydramine HCl 25 Mg Capsule, 25 MG PO Q4H PRN for ITCHING Prescribed by: JIHAN INTERIANO on 06/06/19 155 Doxycycline Hyclate 100 Mg Tablet, 100 MG PO BID Prescribed by: ISELA BRUCE on 04/13/188 Omeprazole 40 Mg Capsule.dr, 40 MG PO BID, (Reported) Patient Home Medication List Home Medication List Reviewed: Yes Review of Systems Review of Systems Constitutional: no symptoms reported Eyes: No Symptoms Reported Ears: See HPI Nose: no symptoms reported Mouth: no symptoms reported Throat: no symptoms reported Respiratory: no symptoms reported Cardiovascular: no symptoms reported Gastrointestinal: no symptoms reported Musculoskeletal: no symptoms reported Skin: no symptoms reported Neurological: No Symptoms Reported Hematologic/Lymphatic: No Symptoms Reported Immunological/Allergic: no symptoms reported Past Pvfnjuu-Yfjtap-Soqxot Hx Patient Social History 2nd Hand Smoke Exposure: No Recent Hopitalizations: No Immunizations Up To Date Date of Influenza Vaccine: May 07, 2018 Seasonal Allergies Seasonal Allergies: Yes Past Medical History Surgeries: Yes (TOE LEFT FOOT, ABD BX) Appendectomy, Tonsillectomy Respiratory: Yes Asthma Cardiac: No Neurological: No Reproductive Disorders: No Sexually Transmitted Disease: No HIV/AIDS: No Genitourinary: No Gastrointestinal: Yes Gastroesophageal Reflux, Polyps Musculoskeletal: Yes Arthritis, Chronic Back Pain Endocrine: No HEENT: No Loss of Vision: Denies Hearing Impairment: Denies Cancer: Yes Lymphoma Did You Recieve Any Treatments: Yes What Type of Treatment Did You: Chemotherapy Psychosocial: Yes (MILD) Anxiety, Depression Integumentary: No Blood Disorders: No Adverse Reaction/Blood Tranf: No (HAS HAD BLOOD WITH NO REACTION) Physical Exam Vital Signs Vital Signs - First Documented 08/26/20 12:36 Temp 36.6 Pulse 73 Resp 20 B/P (MAP) 143/98 (113) Pulse Ox 96 O2 Delivery Room Air Height, Weight, BMI Height: 5'9.00" Weight: 275lbs. 0.0oz. 124.926242mo; 43.00 BMI Method:Stated General Appearance: WD/WN, no apparent distress Eyes: bilateral eye normal inspection, bilateral eye PERRL, bilateral eye EOMI Ears: right ear discharge, right ear TM bulging; left ear TM normal; bilateral ear auricle normal, bilateral ear canal normal Nose: normal inspection Mouth/Throat: normal mouth inspection Neck: non-tender, full range of motion, normal inspection Cardiovascular: regular rate, rhythm, no murmur Respiratory: lungs clear, normal breath sounds Neurologic/Psychiatric: alert, normal mood/affect, oriented x 3 Skin: normal color, warm/dry Progress/Results/Core Measures Progress Progress Note : Progress Note Pt. examined and in no acute distress. States he has had issues with ear infections in the past. Reports some tenderness when pulling on ear drum, but external ear canal is not swollen. Discussed abx, and states he has taken Keflex in the past with no issues despite PCN allergy. Reviewed discharge POC and he is agreeable with plan. Departure Impression Primary Impression: Ear problem Disposition: HOME, SELF-CARE Condition: Stable/Unchanged Departure-Patient Inst. Decision time for Depature: 12:55 Referrals: TERRELL GOEL MD (PCP/Family) Primary Care Physician Patient Instructions: Serous Otitis Media Add. Discharge Instructions: 1. Take antibiotic as directed and complete full course. 2. May take Tylenol or Ibuprofen as needed for pain. 3. Return to ER for any new or concerning symptoms. All discharge instructions reviewed with patient and/or family. Voiced understandi Scripts Cefdinir (Cefdinir) 300 Mg Capsule 300 MG PO BID for 10 Days, #20 CAP 0 Refills Prov: LOU BARRIENTOS [employer] MANAGER 08/26/20 LOU BARRIENTOS [employer]NAGER Aug 26, 2020 12:27
[2020-08-26 12:36] VITALS: BP 143/98
[2020-08-26] MEDS ORDERED: CEFD300C3 PO (13:04)
== END 2020-08-26 13:12 | disposition home or self-care (01) ==
LOC: EDUNIT# 12:21 → ER 12:24
DX: H92.01 Otalgia, right ear (principal); K21.9 Gastro-esophageal reflux disease without esophagitis; J45.909 Unspecified asthma, uncomplicated; Z88.0 Allergy status to penicillin; Z88.1 Allergy status to other antibiotic agents; Z88.5 Allergy status to narcotic agent; Z85.79 Personal history of other malignant neoplasms of lymphoid, hematopoietic and related tissues
CPT/HCPCS: 99282